=== PATIENT | male | born 1945 | race African-American/Black ===

== ENCOUNTER 2019-06-08 11:42 | Inpatient (IN) | payer MEDICARE ==
[~2019-06-08 11:42] MED LIST: Dexamethasone 20 MG/5 ML VIAL ONE; Glycopyrrolate 0.2 MG/ML 5 ML SYRINGE ONE; Lidocaine 1% PF 5 ML VIAL ONE; Ondansetron PF 4 MG/2 ML Vial ONE; PHENYLEPHRINE-NS 100 MCG/ML 10 ML SYRINGE ONE; PROPOFOL 200 MG/20 ML VIAL ONE; Rocuronium Bromide 10 MG/ML (10ML VIAL) ONE; Succinylcholine Chloride 20 MG/ML 10 ml SYRINGE FS ONE
[2019-06-08] MEDS ORDERED: Bupivacaine 0.25% HCL 30 ML VIAL ONE (11:45)
[2019-06-08] MEDS ORDERED: Lidocaine 1% w/Epinephrine 1:100K 20 ML VIAL ONE (11:45)
[2019-06-08] MEDS ORDERED: Fentanyl 100 MCG/2 ML VIAL ONE ×4 (11:57→14:58)
[2019-06-08] MEDS ORDERED: Promethazine HCl 25 MG/ML VIAL SLOW IVP PRN ×2 (12:40→14:45)
[2019-06-08] MEDS ORDERED: Meperidine HCl/PF 25 MG/ML VIAL SLOW IVP PRN (12:40)
[2019-06-08] MEDS ORDERED: HYDROmorphone 2 MG/ML VIAL SLOW IVP PRN (12:40)
[2019-06-08] MEDS ORDERED: Ondansetron HCl/PF 4 MG/2 ML Vial IVP PRN ×2 (12:40→14:45)
[2019-06-08] MEDS ORDERED: Morphine Sulfate 100 MG in Dextrose 5% in Water 98 ML IV SCH (14:33)
[2019-06-08] MEDS ORDERED: Naloxone HCl 0.4 mg/ml Vial IV PRN (14:33)
[2019-06-08] MEDS ORDERED: Ondansetron PF 4 MG/2 ML Vial IVP PRN ×2 (14:33→16:53)
[2019-06-08] MEDS ORDERED: Promethazine HCl 25 MG/ML VIAL IM PRN ×2 (14:45→16:53)
--- NOTE | 2019-06-08 14:47 | HP ---
CHIEF COMPLAINT: Right lower quadrant pain. HISTORY OF PRESENT ILLNESS: This is a 74-year-old male, who just underwent laparoscopic appendectomy converted to open right colon for hepatic flexure of colon mass. He had 2-day history of right lower quadrant lower abdominal pain. Unsure of previous colonoscopy. No blood in stool. No chronic diarrhea or constipation. No chronic abdominal pain. PAST MEDICAL HISTORY: He denies. PAST SURGICAL HISTORY: Includes right inguinal hernia. MEDICATIONS: Taken daily, eye drops. ALLERGIES: NO KNOWN DRUG ALLERGIES. SOCIAL HISTORY: No smoking, alcohol, or other drugs. REVIEW OF SYSTEMS: Ten-system review of systems is otherwise negative unless described above. PHYSICAL EXAMINATION: HEENT: Sclerae are anicteric. Oropharynx is clear. NECK: No lymphadenopathy. CHEST: Clear. HEART: Regular rate. ABDOMEN: Soft. He is tender in the right abdomen with localized guarding without rebound. No abdominal or inguinal hernias. EXTREMITIES: No ischemia or edema to extremities. LABORATORY DATA: White blood cell count is 18, hemoglobin 12, platelet count is 253. Creatinine is 1.22. Liver test all normal. Lipase normal. Urine; trace ketones, trace blood. ASSESSMENT: Presumed appendicitis with conversion of operation to right colon for inflammatory mass. PLAN: Admit to hospital for perioperative care. Await final pathology. Discussed with his Job ID: [id number]
--- NOTE | 2019-06-08 14:54 | OP ---
DATE OF PROCEDURE: 06/08/2019 PREOPERATIVE DIAGNOSIS: Acute appendicitis. POSTOPERATIVE DIAGNOSIS: Right colon mass. PROCEDURE PERFORMED: Laparoscopic appendectomy converted to open right colectomy. ANESTHESIA: General. ESTIMATED BLOOD LOSS: ___50 ml COMPLICATIONS: None. FINDINGS: The patient's appendix appeared inflamed, but this was secondary to an inflammatory process in the abdomen coming from hepatic flexure of colon, where there appeared to be a necrotic tumor like effect, very difficult to tell whether this represented tumor versus inflammatory change from localized diverticulitis. TECHNIQUE: The patient was taken to the operating room and laid supine on the table. After general anesthetic was obtained, a López was placed. The abdomen was shaved, prepped, and draped in a sterile fashion. A curved incision was made below the umbilicus. Cautery was used to dissect down to and score the fascia. Abdominal cavity was entered bluntly using a Judy clamp. Holding stitch of PDS was placed on each side of the fascia. A Aylin trocar was placed. High-flow peritoneum was obtained. A suprapubic 5-mm port and a left lower quadrant 5-mm port were placed under direct visualization. There was purulent-appearing material in the right lower quadrant and pelvis. The appendix appeared inflamed, but there was no obvious perforation point. Decision was made to take out the appendix. Laparoscopic stapler was fired across the base of the appendix. A vascular reload was fired across the mesoappendix. The appendix was brought out through an EndoCatch bag. The abdomen was irrigated using sterile solution. The small bowel was run from ligament of Treitz proximally without evidence of pathology. The sigmoid colon appeared noninflamed. There was no evidence of diverticulum. Looking at the right upper quadrant, there was significant inflammatory change in the area of the hepatic flexure of colon. There was an area where there was some omentum stuck to a perforated part of the hepatic flexure of colon. Decision was made to open. Midline incision was made. Bookwalter retractor was placed. Right colon was mobilized along the white line of Toldt. There was fairly significant localized inflammatory change at the hepatic flexure of colon. The right ureter was found and excluded from the dissection. The hepatic flexure of colon was carefully dissected away from the duodenum. The transverse mesocolon was taken off the proximal transverse colon. A THANH-75 stapler was fired across the terminal ileum, a reload was fired across the transverse colon. The resultant mesentery was taken low using Judy clamps and silk ties. Again, care was taken to avoid injury to the duodenum. The masslike effect was completely confined to the colon without evidence of locally advanced malignant disease. There was no evidence of diffuse lymphadenopathy. There was no liver tumor. The small bowel was able to be brought up in a czol-zv-zcoo fashion against the transverse colon, and a ybbx-ue-kzbq anastomosis was performed using a THANH-75 stapler. The common enterotomy was closed using running Vicryl suture in 2 layers. The anastomosis did not appear ischemic. All instrument counts, needle counts, lap counts were correct. There was no bleeding in the abdomen. Midline fascia was closed using #1 PDS from the top and the bottom and tied in the middle. The subcutaneous tissues were irrigated copiously using sterile solution. The skin was closed using 3-0 Vicryl, 4-0 Monocryl, and Dermabond. The patient was sent to Recovery in stable condition. All instrument counts, needle counts, and lap counts were correct. Job ID: [id number] [facility]
[2019-06-08 16:57] VITALS: BMI 23.7
[2019-06-08] MEDS: Sodium Chloride 0.9% 1,000 ML IV SCH (17:23)
[2019-06-08] MEDS: Famotidine/PF 20 mg/2ml Vial SLOW IVP SCH (20:13)
[2019-06-08] MEDS: Famotidine 20 MG TAB PO SCH (20:14)
[2019-06-09] MEDS: Sodium Chloride 0.9% 1,000 ML IV SCH ×3 (03:00→23:38)
[2019-06-09 05:49] LABS: Anion Gap 12 mmol/L (10-20); BUN (Urea Nitrogen) 14 mg/dL (8.4-25.7); Calc. Creatinine Clearance 54 mL/min (70-130); Calcium 7.9 mg/dL (7.8-10.44); Carbon Dioxide 24 mmol/L (23-31); Chloride 103 mmol/L (98-107); Estimated GFR-MDRD 61; Glucose 110 mg/dL (83-110); Potassium 4.1 mmol/L (3.5-5.1); Sodium 135 mmol/L (136-145)
[2019-06-09 07:51] LABS: Band 12 % (5-11); Eosinophils 1 % (0-10); Hemoglobin 10.1 g/dL (14.0-18.0); Lymphocytes 15 % (21-51); MDiff Complete? YES; Mean Corpuscular HGB CONC 32.8 g/dL (32.0-36.0); Mean Corpuscular Volume 88.6 fL (78.0-98.0); Mean Platelet Volume 7.2 fL (7.4-10.4); Monocytes 2 % (0-10); Neutrophil 70 % (42-75); Platelet Count 258 thou/uL (130-400); RBC Distribution Width 13.3 % (11.5-14.5); Red Blood Cell (RBC) Count 3.48 mill/uL (4.70-6.10); White Blood Cell (WBC) Count 15.4 thou/uL (4.8-10.8)
[2019-06-09] MEDS: Famotidine 20 MG TAB PO SCH ×2 (08:04→20:28)
[2019-06-09] MEDS ORDERED: Prevnar 13-Val Conj/PF 0.5 ML SYRINGE IM ONE (09:00)
[2019-06-09] MEDS: Tamsulosin HCl 0.4 MG CAP PO SCH (09:18)
--- NOTE | 2019-06-09 09:38 | PRG ---
DATE OF SERVICE: 06/09/2019 SUBJECTIVE: Postop day #1 right colectomy for inflammatory mass. Mr. Cagle has no complaints. He is tolerating clear liquids without difficulty. He is ambulated. His López was removed this morning. He is due to void. Tolerating his clear liquids. No nausea. His catheter is out. He is due to void. OBJECTIVE: He is afebrile. Vital signs are stable. His abdomen is soft. His wound is healing well. There is no infection. He is slightly distended. LABORATORY DATA: His sodium is 135, potassium 4.1, creatinine 1.38. White blood cell count is 15, hemoglobin 10, platelet count is 258. ASSESSMENT: Postop day #1 right colectomy. PLAN: Stay on clears today. 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 Replace the López catheter if he is not able to void by 11 a.m. Start Flomax. Follow his creatinine. Keep IV fluids running at 100 mL secondary to creatinine being up a little bit since surgery. Job ID: [id number]
[2019-06-09] MEDS: Famotidine/PF 20 mg/2ml Vial SLOW IVP SCH ×2 (15:30→22:10)
[2019-06-09] MEDS ORDERED: Morphine Sulfate 100 MG in Dextrose 5% in Water 98 ML IV SCH (16:45)
[2019-06-09] MEDS: hydrALAZINE 20 MG/ML VIAL SLOW IVP PRN (23:39)
[2019-06-10] MEDS ORDERED: Fentanyl 100 MCG/2 ML VIAL SLOW IVP PRN (08:14)
--- NOTE | 2019-06-10 08:33 | PRG ---
DATE OF SERVICE: 06/09/2019 SUBJECTIVE: Mr. Cagle is doing well. No nausea, vomiting, or bloating. He has not passed much gas yet. He has been ambulatory. López had to be replaced secondary to urinary retention. He is afebrile and his vital signs are stable. His abdomen is nondistended. He does have some bowel sounds. His midline incision is healing well without evidence of infection. ASSESSMENT: Postop right colectomy for hepatic flexure mass. PLAN: Advance to full liquids today. Discontinue CRANBERRY SORTER, do tramadol for pain as tolerates at home tomorrow. He will likely go home with this catheter in given his urinary retention, have already started Flomax. Job ID: [id number]
[2019-06-10] MEDS: Famotidine 20 MG TAB PO SCH ×2 (08:58→21:05)
[2019-06-10] MEDS: Tamsulosin HCl 0.4 MG CAP PO SCH (08:58)
[2019-06-10] MEDS: Famotidine/PF 20 mg/2ml Vial SLOW IVP SCH ×2 (08:59→21:07)
[2019-06-10] MEDS: traMADol HCl 50 MG TAB PO PRN (17:52)
[2019-06-11] MEDS: traMADol HCl 50 MG TAB PO PRN ×2 (00:23→21:29)
[2019-06-11] MEDS: Fentanyl 100 MCG/2 ML VIAL SLOW IVP PRN ×4 (04:20→23:14)
[2019-06-11] MEDS: hydrALAZINE 20 MG/ML VIAL SLOW IVP PRN (05:53)
[2019-06-11 07:07] LABS: #Basophils 0.1 thou/uL (0.0-0.2); #Eosinphils 0.1 thou/uL (0.0-0.7); #Lymphocytes 1.5 thou/uL (1.20-3.40); #Monocytes 1.3 thou/uL (0.11-0.59); #Neutrophils 6.6 thou/uL (1.40-6.50); %Basophils 0.6 % (0.0-1.0); %Eosinophils 0.6 % (0.0-10.0); %Lymphocytes 15.7 % (21.0-51.0); %Monocytes 13.3 % (0.0-10.0); %Neutrophils 69.9 % (42.0-75.0); Hemoglobin 10.9 g/dL (14.0-18.0); Mean Corpuscular HGB CONC 31.9 g/dL (32.0-36.0); Mean Corpuscular Hemoglobin 27.9 pg (27.0-31.0); Mean Corpuscular Volume 87.5 fL (78.0-98.0); Mean Platelet Volume 7.2 fL (7.4-10.4); Platelet Count 249 thou/uL (130-400); Red Blood Cell (RBC) Count 3.91 mill/uL (4.70-6.10); White Blood Cell (WBC) Count 9.4 thou/uL (4.8-10.8)
[2019-06-11 07:15] LABS: Anion Gap 12 mmol/L (10-20); BUN (Urea Nitrogen) 9 mg/dL (8.4-25.7); Calc. Creatinine Clearance 65 mL/min (70-130); Calcium 8.2 mg/dL (7.8-10.44); Carbon Dioxide 25 mmol/L (23-31); Chloride 101 mmol/L (98-107); Estimated GFR-MDRD 76; Glucose 96 mg/dL (83-110); Potassium 3.8 mmol/L (3.5-5.1); Sodium 134 mmol/L (136-145)
[2019-06-11] MEDS ORDERED: Timolol 0.5% Ophth Soln 5 ml Bottle EA EYE SCH (09:00)
--- NOTE | 2019-06-11 09:08 | PRG ---
DATE OF SERVICE: 06/11/2019 SUBJECTIVE: Mr. Cagle is complaining of more bloating. No vomiting. No nausea, but he is hiccuping a lot. No passing gas. No bowel movement yet. OBJECTIVE: VITAL SIGNS: He is afebrile. His blood pressure is 197/84, pulse is 99, respirations 24, O2 saturation is 96% on room air. He is afebrile. ABDOMEN: More distended. He has minimal bowel sounds. His midline wound is healing well without evidence of infection. LABORATORY DATA: White blood cell count is 9, hemoglobin is 10.9, platelet count is 249, normal differential. Creatinine 1.14. ASSESSMENT: 1. Expected postoperative ileus, right colectomy for hepatic flexure mass. 2. Hypertension. Does not take medication at home. PLAN: We will place NG tube and n.p.o. except ice chips and hard candy. I expect this expected postop ileus to slowly resolve. Job ID: [id number]
[2019-06-11] MEDS: Famotidine/PF 20 mg/2ml Vial SLOW IVP SCH ×2 (09:53→20:14)
[2019-06-11] MEDS: D5 1/2 NS w/20 mEq KCL 1,000 ML IV SCH ×2 (09:55→18:35)
[2019-06-11] MEDS: Tamsulosin HCl 0.4 MG CAP PO SCH (09:58)
[2019-06-11] MEDS: Famotidine 20 MG TAB PO SCH ×2 (09:58→20:12)
[2019-06-11] MEDS ORDERED: Labetalol HCl 100 MG/20 ML VIAL SLOW IVP PRN (10:51)
[2019-06-11] MEDS ORDERED: cloNIDine 0.1mg/24 Hour PATCH TD SCH (12:00)
[2019-06-11] MEDS: Labetalol HCl 100 MG/20 ML VIAL SLOW IVP SCH ×3 (12:02→23:15)
[2019-06-11] MEDS: Timolol 0.25% Ophth Soln 5 ml Bottle EA EYE SCH ×2 (12:02→20:14)
--- NOTE | 2019-06-11 15:15 | PDOC.HOSPP ---
- Subjective Encounter Date: 06/11/19 Encounter Time: 10:45 Subjective: Patient seen and examined for elevated HTN. Has h/o HTN - dced meds by himself. Does not take meds at home. No CP/SOB. - Objective Vital Signs & Weight: Vital Signs (12 hours) Temp Pulse Resp BP Pulse Ox 06/11/19 10:50 98.5 F 92 22 H 171/77 H 97 06/11/19 07:14 98.7 F 99 24 H 197/84 H 96 06/11/19 05:53 80 06/11/19 04:24 98.7 F 80 16 188/105 H 97 Weight Weight 175 lb 0.752 oz I&O: 06/10/19 06/11/19 06/12/19 06:59 06:59 06:59 Intake Total 1350 400 Output Total 475 1600 Balance 875 -1200 Result Diagrams: 06/11/19 06:47 06/11/19 06:47 Hospitalist ROS - Review of Systems Respiratory: denies: cough, dry, shortness of breath, hemoptysis, SOB with excertion, pleuritic pain, sputum, wheezing, other Cardiovascular: denies: chest pain, palpitations, orthopnea, paroxysmal noc. dyspnea, edema, light headedness, other - Medication Medications: Active Medications Generic Name Dose Route Start Last Admin Trade Name Freq PRN Reason Stop Dose Admin Clonidine 0.1 mg 06/11/19 12:00 06/11/19 12:03 [id number] Patch TD 0.1 mg Q7D ZEB Administration Famotidine 20 mg 06/08/19 21:00 06/11/19 09:58 Pepcid PO Not Given Q12HR ZEB Famotidine 20 mg 06/08/19 21:00 06/11/19 09:53 Pepcid SLOW IVP 20 mg Q12HR ZEB Administration Fentanyl 50 mcg 06/10/19 08:14 06/11/19 09:53 Sublimaze SLOW IVP 50 mcg Q2H PRN Administration Moderate to Severe Pain (6-10) Hydralazine HCl 10 mg 06/08/19 16:53 06/11/19 05:53 Apresoline SLOW IVP 10 mg Q4H PRN Administration SBP > 170 or DBP > 100 Potassium Chloride/Dextrose/Sod Cl 1,000 mls @ 100 mls/hr 06/11/19 09:00 09:55 D5 1/2 Ns W/20 Meq Kcl IV 1,000 mls .Q10H ZEB Administration Labetalol HCl 10 mg 06/11/19 12:00 06/11/19 12:02 Normodyne SLOW IVP 2 ml Q6HR ZEB Administration Tamsulosin HCl 0.4 mg 06/09/19 09:00 06/11/19 09:58 Flomax PO Not Given DAILY ZEB Timolol Maleate 1 drop 06/11/19 09:00 06/11/19 12:02 Timoptic 0.25% Ophth Soln EA EYE 1 drp BID ZEB Administration Tramadol HCl 100 mg 06/10/19 08:14 06/11/19 00:23 Ultram PO 100 mg Q6H PRN Administration Moderate to Severe Pain (6-10) - Exam General Appearance: NAD General - other findings: NG tube Neck: supple, no JVD Heart: RRR, no gallops Respiratory: no wheezes, no ronchi Gastrointestinal: soft, no guarding, no rigidity Extremities: no cyanosis, no clubbing, no edema Hosp A/P - Plan out of bed/ambulate, DVT proph w/SCDs HTN - uncontrolled CKD 2 Chronic Anemia - suspected due to nutritional def PLAN: Will start IV Labetalol 10 mg Q6h scheduled Add Clonidine patch Cont IV Hydralazine PRN AM labs Full code DPOA - spouse
[2019-06-11] MEDS ORDERED: Enalaprilat Dihydrate 1.25 MG/ML VIAL SLOW IVP PRN (15:46)
[2019-06-12] MEDS: Fentanyl 100 MCG/2 ML VIAL SLOW IVP PRN ×2 (02:20→08:28)
[2019-06-12] MEDS: D5 1/2 NS w/20 mEq KCL 1,000 ML IV SCH ×2 (04:11→20:31)
[2019-06-12] MEDS: traMADol HCl 50 MG TAB PO PRN ×3 (04:11→23:57)
[2019-06-12] MEDS: Labetalol HCl 100 MG/20 ML VIAL SLOW IVP SCH ×4 (05:41→23:51)
[2019-06-12 05:42] LABS: Anion Gap 12 mmol/L (10-20); BUN (Urea Nitrogen) 7 mg/dL (8.4-25.7); Calc. Creatinine Clearance 69 mL/min (70-130); Calcium 8.2 mg/dL (7.8-10.44); Carbon Dioxide 23 mmol/L (23-31); Chloride 102 mmol/L (98-107); Estimated GFR-MDRD 82; Glucose 124 mg/dL (83-110); Sodium 133 mmol/L (136-145)
[2019-06-12 05:49] LABS: Phosphorus 1.7 mg/dL (2.3-4.7)
[2019-06-12] MEDS ORDERED: Sodium Phosphate 15 MMOL in Sodium Chloride 0.9% 250 ML 250 ML IVPB SCH (06:45)
[2019-06-12] MEDS: Enalaprilat Dihydrate 1.25 MG/ML VIAL SLOW IVP SCH (08:32)
[2019-06-12] MEDS: Tamsulosin HCl 0.4 MG CAP PO SCH (08:33)
[2019-06-12] MEDS: Famotidine/PF 20 mg/2ml Vial SLOW IVP SCH ×2 (08:33→20:31)
--- NOTE | 2019-06-12 10:39 | PRG ---
DATE OF SERVICE: 06/12/2019 SUBJECTIVE: Mr. Cagle has no complaints. His nausea and bloating have improved with an NG tube. The NG tube has put out 500 overnight. It looks bilious. OBJECTIVE: VITAL SIGNS: He is afebrile. Vital signs are stable. His blood pressure is improved. ABDOMEN: Less distended. He has no bowel sounds. His midline wound is healing well without evidence of infection. LABORATORY DATA: White blood cell count is 9, hemoglobin 10, and platelet count is 249. He has a normal differential. Sodium 133, potassium 4.0, and creatinine is 1.07. ASSESSMENT: 1. Postop right colectomy for inflammatory perforated mass. 2. Postop expected ileus. PLAN: Continue NG tube until he has good bowel sounds and passes gas. We will allow ice chips and hard candy. Job ID: [id number]
[2019-06-12] MEDS: Famotidine 20 MG TAB PO SCH ×2 (10:40→20:30)
[2019-06-12] MEDS: Timolol 0.25% Ophth Soln 5 ml Bottle EA EYE SCH ×2 (10:40→20:31)
--- NOTE | 2019-06-12 11:52 | RAD ---
2 VIEW ABDOMEN: Supine and upright views obtained. HISTORY: Postop ileus. FINDINGS: NG tube is in place and tip overlies the region of the gastric antrum. There is stool and gas throughout the colon with mildly distended colon. Small bowel gas pattern is u nremarkable with no evidence of significant small bowel distention or dilatation. IMPRESSION: Mildly distended colon with stool in the left colon. Small bowel gas pattern is unremarkable. POS: [facility]
--- NOTE | 2019-06-12 17:47 | PDOC.HOSPP ---
- Subjective Encounter Date: 06/12/19 Encounter Time: 11:00 Subjective: Patient seen and examined for medical mngt. No CP/SOB/palpitations/syncope. No new complaints. No overnight events - Objective Vital Signs & Weight: Vital Signs (12 hours) Temp Pulse Resp BP BP Pulse Ox 06/12/19 16:00 99.1 F 95 20 158/88 H 96 06/12/19 12:42 95 06/12/19 12:16 98.8 F 95 14 149/94 H 100 06/12/19 08:32 164/95 H 06/12/19 08:03 98.5 F 97 20 168/95 H 98 Weight Admit Weight 175 lb 0.752 oz Weight 175 lb 0.752 oz I&O: 06/11/19 06/12/19 06/13/19 06:59 06:59 06:59 Intake Total 400 1000 Output Total 1600 4350 Balance -1200 -5660 Result Diagrams: 06/11/19 06:47 06/12/19 04:44 Hospitalist ROS - Review of Systems Respiratory: denies: cough, dry, shortness of breath, hemoptysis, SOB with excertion, pleuritic pain, sputum, wheezing, other Cardiovascular: denies: chest pain, palpitations, orthopnea, paroxysmal noc. dyspnea, edema, light headedness, other - Medication Medications: Active Medications Generic Name Dose Route Start Last Admin Trade Name Freq PRN Reason Stop Dose Admin Clonidine 0.1 mg 06/11/19 12:00 06/11/19 12:03 Esvtatiq-Tkv-3 Patch TD 0.1 mg Q7D ZEB Administration Enalaprilat 1.25 mg 06/12/19 09:00 06/12/19 08:32 Vasotec SLOW IVP 1.25 mg DAILY ZEB Administration Famotidine 20 mg 06/08/19 21:00 06/12/19 10:40 Pepcid PO Not Given Q12HR ZEB Famotidine 20 mg 06/08/19 21:00 06/12/19 08:33 Pepcid SLOW IVP 20 mg Q12HR ZEB Administration Fentanyl 50 mcg 06/10/19 08:14 06/12/19 08:28 Sublimaze SLOW IVP 50 mcg Q2H PRN Administration Moderate to Severe Pain (6-10) Hydralazine HCl 10 mg 06/08/19 16:53 06/11/19 05:53 Apresoline SLOW IVP 10 mg Q4H PRN Administration SBP > 170 or DBP > 100 Potassium Chloride/Dextrose/Sod Cl 1,000 mls @ 100 mls/hr 06/11/19 09:00 04:11 D5 1/2 Ns W/20 Meq Kcl IV 1,000 mls .Q10H ZEB Administration Labetalol HCl 10 mg 06/11/19 12:00 06/12/19 12:42 Normodyne SLOW IVP 2 ml Q6HR ZEB Administration Tamsulosin HCl 0.4 mg 06/09/19 09:00 06/12/19 08:33 Flomax PO 0.4 mg DAILY ZEB Administration Timolol Maleate 1 drop 06/11/19 09:00 06/12/19 10:40 Timoptic 0.25% Ophth Soln EA EYE 1 drp BID ZEB Administration Tramadol HCl 100 mg 06/10/19 08:14 06/12/19 04:11 Ultram PO 100 mg Q6H PRN Administration Moderate to Severe Pain (6-10) - Exam Heart: RRR, no gallops Respiratory: no wheezes, no ronchi Gastrointestinal: non-tender, non-distended, normal bowel sounds Extremities: no cyanosis Neurological: no new deficit Hosp A/P - Plan DVT proph w/SCDs HTN - better controlled Hypophosphatemia CKD 2 Chronic Anemia - suspected due to nutritional def PLAN: Cont IV Labetalol 10 mg Q6h scheduled Cont Clonidine patch Add IV Vasotec scheduled QAM Replace Phosphorus Cont IV Hydralazine PRN AM labs
[2019-06-13] MEDS: Labetalol HCl 100 MG/20 ML VIAL SLOW IVP SCH ×3 (05:14→17:41)
[2019-06-13] MEDS: D5 1/2 NS w/20 mEq KCL 1,000 ML IV SCH ×3 (05:15→20:20)
[2019-06-13 05:56] LABS: #Eosinphils 0.2 thou/uL (0.0-0.7); #Lymphocytes 1.7 thou/uL (1.20-3.40); #Monocytes 1.5 thou/uL (0.11-0.59); #Neutrophils 10.9 thou/uL (1.40-6.50); %Eosinophils 1.2 % (0.0-10.0); %Lymphocytes 11.9 % (21.0-51.0); %Monocytes 10.5 % (0.0-10.0); %Neutrophils 76.3 % (42.0-75.0); Hemoglobin 9.2 g/dL (14.0-18.0); Mean Corpuscular HGB CONC 32.9 g/dL (32.0-36.0); Mean Corpuscular Hemoglobin 28.6 pg (27.0-31.0); Mean Corpuscular Volume 86.8 fL (78.0-98.0); Platelet Count 254 thou/uL (130-400); RBC Distribution Width 13.1 % (11.5-14.5); Red Blood Cell (RBC) Count 3.22 mill/uL (4.70-6.10); White Blood Cell (WBC) Count 14.2 thou/uL (4.8-10.8)
[2019-06-13 06:15] LABS: Albumin 2.7 g/dL (3.4-4.8); Anion Gap 12 mmol/L (10-20); BUN (Urea Nitrogen) 11 mg/dL (8.4-25.7); BUN/Creatinine Ratio 9.65; Calc. Creatinine Clearance 65 mL/min (70-130); Calcium 8.3 mg/dL (7.8-10.44); Carbon Dioxide 26 mmol/L (23-31); Chloride 101 mmol/L (98-107); Estimated GFR-MDRD 76; Glucose 110 mg/dL (83-110); Magnesium 1.9 mg/dL (1.6-2.6); Phosphorus 2.9 mg/dL (2.3-4.7); Potassium 3.8 mmol/L (3.5-5.1); Sodium 135 mmol/L (136-145)
[2019-06-13] MEDS: traMADol HCl 50 MG TAB PO PRN ×3 (06:32→20:18)
[2019-06-13] MEDS: Tamsulosin HCl 0.4 MG CAP PO SCH (09:14)
[2019-06-13] MEDS: Famotidine 20 MG TAB PO SCH ×2 (09:15→20:14)
[2019-06-13] MEDS: Enalaprilat Dihydrate 1.25 MG/ML VIAL SLOW IVP SCH (09:15)
[2019-06-13] MEDS: Famotidine/PF 20 mg/2ml Vial SLOW IVP SCH ×2 (09:15→20:14)
[2019-06-13] MEDS: Timolol 0.25% Ophth Soln 5 ml Bottle EA EYE SCH (09:16)
[2019-06-13] MEDS: Timolol 0.5% Ophth Soln 5 ml Bottle EA EYE SCH (20:15)
[2019-06-13] MEDS ORDERED: cloNIDine 0.1 MG TAB PO PRN (23:27)
--- NOTE | 2019-06-13 23:29 | PDOC.HOSPP ---
- Subjective Encounter Date: 06/13/19 Encounter Time: 11:45 Subjective: Patient seen and examined for med mngt. No N/V/CP. No new complaints. No overnight events - Objective Vital Signs & Weight: Vital Signs (12 hours) Temp Pulse Resp BP BP Pulse Ox 06/13/19 20:15 84 06/13/19 20:05 99 06/13/19 19:14 98.3 F 84 16 166/93 H 99 06/13/19 16:10 98.7 F 86 12 135/80 98 06/13/19 12:16 159/95 H 06/13/19 11:56 98.5 F 82 16 159/95 H 98 Weight Admit Weight 175 lb 0.752 oz Weight 175 lb 0.752 oz I&O: 06/12/19 06/13/19 06/14/19 06:59 06:59 06:59 Intake Total 1000 2150 1800 Output Total 4350 1450 1200 Balance -3350 700 600 Result Diagrams: 06/13/19 05:19 06/13/19 05:19 Hospitalist ROS - Review of Systems Respiratory: denies: cough, dry, shortness of breath, hemoptysis, SOB with excertion, pleuritic pain, sputum, wheezing, other Cardiovascular: denies: chest pain, palpitations, orthopnea, paroxysmal noc. dyspnea, edema, light headedness, other - Medication Medications: Active Medications Generic Name Dose Route Start Last Admin Trade Name Freq PRN Reason Stop Dose Admin Clonidine 0.1 mg 06/11/19 12:00 06/11/19 12:03 Aakpjtyj-Mjf-4 Patch TD 0.1 mg Q7D ZEB Administration Famotidine 20 mg 06/08/19 21:00 06/13/19 20:14 Pepcid PO 20 mg Q12HR ZEB Administration Famotidine 20 mg 06/08/19 21:00 06/13/19 20:14 Pepcid SLOW IVP Not Given Q12HR ZEB Fentanyl 50 mcg 06/10/19 08:14 06/12/19 08:28 Sublimaze SLOW IVP 50 mcg Q2H PRN Administration Moderate to Severe Pain (6-10) Hydralazine HCl 10 mg 06/08/19 16:53 06/11/19 05:53 Apresoline SLOW IVP 10 mg Q4H PRN Administration SBP > 170 or DBP > 100 Labetalol HCl 10 mg 06/11/19 12:00 06/13/19 17:41 Normodyne SLOW IVP 06/14/19 02:00 Not Given Q6HR ZEB Tamsulosin HCl 0.4 mg 06/09/19 09:00 06/13/19 09:14 Flomax PO 0.4 mg DAILY ZEB Administration Timolol Maleate 1 drop 06/13/19 21:00 06/13/19 20:15 Timoptic 0.5% Ophth Soln EA EYE Not Given BID ZEB Tramadol HCl 50 mg 06/10/19 08:14 06/13/19 20:18 Ultram PO 50 mg Q6H PRN Administration Mild-Moderate Pain (1-5) Tramadol HCl 100 mg 06/10/19 08:14 06/13/19 06:32 Ultram PO 100 mg Q6H PRN Administration Moderate to Severe Pain (6-10) - Exam General Appearance: NAD Neck: supple, no JVD Heart: no gallops, no rubs Respiratory: no wheezes, no ronchi Gastrointestinal: non-tender, non-distended, normal bowel sounds Extremities: no cyanosis Hosp A/P - Plan DVT proph w/SCDs HTN Hypophosphatemia - replaced CKD 2 Chronic Anemia - suspected due to nutritional def PLAN: Add PO Procardia XL and Coreg from AM DC IV Labetalol after PM dose Cont Clonidine patch Cont IV Hydralazine PRN
[2019-06-14] MEDS: Labetalol HCl 100 MG/20 ML VIAL SLOW IVP SCH (00:10)
[2019-06-14] MEDS: D5 1/2 NS w/20 mEq KCL 1,000 ML IV SCH ×2 (03:17→04:39)
[2019-06-14] MEDS: traMADol HCl 50 MG TAB PO PRN ×3 (06:19→18:28)
[2019-06-14] MEDS ORDERED: D5 1/2 NS w/20 mEq KCL 1,000 ML IV SCH (08:09)
[2019-06-14] MEDS ORDERED: NIFEdipine XL 30 MG TAB PO SCH (09:00)
[2019-06-14] MEDS: Carvedilol 6.25 MG TAB PO SCH ×2 (09:56→16:06)
[2019-06-14] MEDS: Famotidine 20 MG TAB PO SCH ×2 (09:56→20:22)
[2019-06-14] MEDS: Tamsulosin HCl 0.4 MG CAP PO SCH (09:56)
[2019-06-14] MEDS: Timolol 0.5% Ophth Soln 5 ml Bottle EA EYE SCH ×2 (09:57→20:23)
[2019-06-14] MEDS: Famotidine/PF 20 mg/2ml Vial SLOW IVP SCH ×2 (09:57→20:23)
--- NOTE | 2019-06-14 11:41 | PDOC.GSPN ---
Surgery Progress Note: Subj - Subjective Narrative: Doing well. Tolerating liquids well now. Had a BM Surgery Progress Note: Obj - Vital signs Vital signs: Vital Signs - Most Recent Temp Pulse Resp BP Pulse Ox 98.1 F 83 16 150/89 H 99 06/14/19 07:05 06/14/19 09:57 06/14/19 07:05 06/14/19 09:57 06/14/19 09:56 - Physical Exam General: no distress Cardiovascular: regular rate and rhythm Respiratory: clear to auscultation Abdomen: soft, appropriately tender Wound: erythma/edema (at inferior wound. Will explore locally) Surgery Progress Note: Results - Labs Result Diagrams: 06/13/19 05:19 06/13/19 05:19 Surgery Progress Note: A/P - Problem (1) Mass of hepatic flexure of colon Current Visit: Yes Code(s): K63.89 - OTHER SPECIFIED DISEASES OF INTESTINE Status: Acute - Plan Plan: Perforated: Path shows T3, N0 (Although clinically a T4 due to perforation) -Full liquids. -suspect home tomorrow -explore inferior wound
--- NOTE | 2019-06-14 13:56 | PDOC.HOSPP ---
- Subjective Encounter Date: 06/14/19 Encounter Time: 10:45 Subjective: Patient seen and examined for med mngt. Toleraing PO meds. No N or CP. No new complaints. No overnight events - Objective Vital Signs & Weight: Vital Signs (12 hours) Temp Pulse Resp BP BP Pulse Ox 06/14/19 11:05 98.1 F 97 18 148/82 H 99 06/14/19 09:57 83 150/89 H 06/14/19 09:56 83 151/84 H 99 06/14/19 07:05 98.1 F 83 16 150/89 H 99 06/14/19 03:41 98.4 F 70 16 135/80 99 Weight Admit Weight 175 lb 0.752 oz Weight 175 lb 0.752 oz I&O: 06/13/19 06/14/19 06/15/19 06:59 06:59 06:59 Intake Total 2150 3225 Output Total 1450 2050 850 Balance 700 1175 -850 Result Diagrams: 06/13/19 05:19 06/13/19 05:19 Hospitalist ROS - Review of Systems Respiratory: denies: cough, dry, shortness of breath, hemoptysis, SOB with excertion, pleuritic pain, sputum, wheezing, other Cardiovascular: denies: chest pain, palpitations, orthopnea, paroxysmal noc. dyspnea, edema, light headedness, other - Medication Medications: Active Medications Generic Name Dose Route Start Last Admin Trade Name Freq PRN Reason Stop Dose Admin Carvedilol 6.25 mg 06/14/19 08:00 06/14/19 09:56 Coreg PO 6.25 mg BID-WM ZEB Administration Clonidine 0.1 mg 06/11/19 12:00 06/11/19 12:03 [place]-Glw-4 Patch TD 0.1 mg Q7D ZEB Administration Famotidine 20 mg 06/08/19 21:00 06/14/19 09:56 Pepcid PO 20 mg Q12HR ZEB Administration Famotidine 20 mg 06/08/19 21:00 06/14/19 09:57 Pepcid SLOW IVP Not Given Q12HR ZEB Fentanyl 50 mcg 06/10/19 08:14 06/12/19 08:28 Sublimaze SLOW IVP 50 mcg Q2H PRN Administration Moderate to Severe Pain (6-10) Hydralazine HCl 10 mg 06/08/19 16:53 06/11/19 05:53 Apresoline SLOW IVP 10 mg Q4H PRN Administration SBP > 170 or DBP > 100 Levofloxacin 500 mg/ Device 100 mls @ 100 mls/hr 06/14/19 12:00 06/14/19 12: 23 IVPB 100 mls 1200 ZEB Administration Nifedipine 30 mg 06/14/19 09:00 06/14/19 09:56 Procardia Xl PO 30 mg DAILY ZEB Administration Tamsulosin HCl 0.4 mg 06/09/19 09:00 06/14/19 09:56 Flomax PO 0.4 mg DAILY ZEB Administration Timolol Maleate 1 drop 06/13/19 21:00 06/14/19 09:57 Timoptic 0.5% Ophth Soln EA EYE 1 drop BID ZEB Administration Tramadol HCl 50 mg 06/10/19 08:14 06/14/19 06:19 Ultram PO 50 mg Q6H PRN Administration Mild-Moderate Pain (1-5) Tramadol HCl 100 mg 06/10/19 08:14 06/14/19 12:22 Ultram PO 100 mg Q6H PRN Administration Moderate to Severe Pain (6-10) - Exam General Appearance: NAD Heart: RRR, no gallops Respiratory: no wheezes, no ronchi Gastrointestinal: soft, no guarding, no rigidity Extremities: no cyanosis Hosp A/P - Plan DVT proph w/SCDs HTN CKD 2 Hypophosphatemia - replaced Chronic Anemia - suspected due to nutritional def Urinary retention PLAN: Cont Procardia XL 30 mg daily Cont Coreg 6.25 mg BID Cont Flomax Cont PO Clonidine PRN Remove Clonidine patch at dc Cont IV Hydralazine PRN
[2019-06-14] MEDS: metroNIDAZOLE 500 MG in Premix Bag 1 BAG IVPB SCH ×2 (14:30→21:50)
[2019-06-14] MEDS: Fentanyl 100 MCG/2 ML VIAL SLOW IVP PRN (14:51)
[2019-06-15] MEDS: metroNIDAZOLE 500 MG in Premix Bag 1 BAG IVPB SCH ×3 (05:14→21:11)
[2019-06-15] MEDS: Tamsulosin HCl 0.4 MG CAP PO SCH (08:02)
[2019-06-15] MEDS: Famotidine 20 MG TAB PO SCH ×2 (08:03→20:47)
[2019-06-15] MEDS: Famotidine/PF 20 mg/2ml Vial SLOW IVP SCH ×2 (08:04→20:51)
[2019-06-15] MEDS: Timolol 0.5% Ophth Soln 5 ml Bottle EA EYE SCH ×2 (08:04→21:12)
[2019-06-15] MEDS ORDERED: Amlodipine 5 MG TAB PO SCH (09:00)
--- NOTE | 2019-06-15 09:05 | PRG ---
DATE OF SERVICE: 06/15/2019 SUBJECTIVE: The patient is status post extended hemicolectomy for T4 colon cancer. He developed a wound infection. He has a wound VAC in place. He says he feels great. He is eating. His bowels are working. OBJECTIVE: VITAL SIGNS: Temperature 98.2, pulse 73, and blood pressure 112/70. GENERAL: He is awake, alert, does not appear to be in any distress. ABDOMEN: Soft, nondistended, and nontender. He has a wound VAC on his wound. LABORATORY DATA: No recent lab. ASSESSMENT: Doing well. PLAN: get Home Health arranged for his wound VAC, should be able to discharge . Job ID: [id number]
--- NOTE | 2019-06-15 10:58 | PDOC.HOSPP ---
- Subjective Encounter Date: 06/15/19 Encounter Time: 09:30 Subjective: Patient seen and examined for medical mgnt. No CP/SOB or fever. No new complaints. No overnight events - Objective Vital Signs & Weight: Vital Signs (12 hours) Temp Pulse Resp BP BP Pulse Ox 06/15/19 08:04 73 06/15/19 08:03 98 06/15/19 08:02 73 112/70 06/15/19 07:13 98.2 F 73 18 112/70 98 06/15/19 04:00 98.2 F 71 18 122/73 96 06/14/19 23:47 98.1 F 83 18 103/64 96 Weight Admit Weight 175 lb 0.752 oz Weight 175 lb 0.752 oz I&O: 06/14/19 06/15/19 06/16/19 06:59 06:59 06:59 Intake Total 3225 2370 Output Total 2050 2250 Balance 1175 120 Result Diagrams: 06/13/19 05:19 06/13/19 05:19 Hospitalist ROS - Review of Systems Respiratory: denies: cough, dry, shortness of breath, hemoptysis, SOB with excertion, pleuritic pain, sputum, wheezing, other Cardiovascular: denies: chest pain, palpitations, orthopnea, paroxysmal noc. dyspnea, edema, light headedness, other - Medication Medications: Active Medications Generic Name Dose Route Start Last Admin Trade Name Freq PRN Reason Stop Dose Admin Amlodipine Besylate 2.5 mg 06/15/19 09:00 06/15/19 08:02 Norvasc PO 2.5 mg DAILY ZEB Administration Famotidine 20 mg 06/08/19 21:00 06/15/19 08:03 Pepcid PO 20 mg Q12HR ZEB Administration Famotidine 20 mg 06/08/19 21:00 06/15/19 08:04 Pepcid SLOW IVP Not Given Q12HR ZEB Fentanyl 50 mcg 06/10/19 08:14 06/14/19 14:51 Sublimaze SLOW IVP 50 mcg Q2H PRN Administration Moderate to Severe Pain (6-10) Hydralazine HCl 10 mg 06/08/19 16:53 06/11/19 05:53 Apresoline SLOW IVP 10 mg Q4H PRN Administration SBP > 170 or DBP > 100 Levofloxacin 500 mg/ Device 100 mls @ 100 mls/hr 06/14/19 12:00 06/14/19 12: 23 IVPB 100 mls 1200 ZEB Administration Metronidazole 500 mg/ Device 100 mls @ 100 mls/hr 06/14/19 14:00 06/15/19 05: 14 IVPB 100 mls Q8HR ZEB Administration Tamsulosin HCl 0.4 mg 06/09/19 09:00 06/15/19 08:02 Flomax PO 0.4 mg DAILY ZEB Administration Timolol Maleate 1 drop 06/13/19 21:00 06/15/19 08:04 Timoptic 0.5% Ophth Soln EA EYE Not Given BID ZEB Tramadol HCl 50 mg 06/10/19 08:14 06/14/19 18:28 Ultram PO 50 mg Q6H PRN Administration Mild-Moderate Pain (1-5) Tramadol HCl 100 mg 06/10/19 08:14 06/14/19 12:22 Ultram PO 100 mg Q6H PRN Administration Moderate to Severe Pain (6-10) - Exam General Appearance: NAD Heart: RRR, no gallops Respiratory: no rales, no ronchi Gastrointestinal: no guarding, no rigidity Extremities: no cyanosis Neurological: no new deficit Hosp A/P - Plan DVT proph w/SCDs HTN CKD 2 Hypophosphatemia - replaced Chronic Anemia - suspected due to nutritional def Urinary retention PLAN: DC Procardia XL 30 mg daily DC Coreg 6.25 mg BID DC Clonidine patch Add Amlodipine López dced Cont Flomax Cont Clonidine PRN Will send meds to pharmacy [place]
[2019-06-15] MEDS: traMADol HCl 50 MG TAB PO PRN (13:34)
[2019-06-15] MEDS ORDERED: Melatonin 3 MG TAB PO PRN (18:51)
[2019-06-15] MEDS: Amlodipine 5 MG TAB PO SCH (20:47)
[2019-06-16] MEDS: Acetaminophen 325 MG TAB PO PRN ×2 (05:15→09:44)
[2019-06-16] MEDS: metroNIDAZOLE 500 MG in Premix Bag 1 BAG IVPB SCH (05:16)
[2019-06-16] MEDS: Famotidine/PF 20 mg/2ml Vial SLOW IVP SCH (09:40)
[2019-06-16] MEDS: Timolol 0.5% Ophth Soln 5 ml Bottle EA EYE SCH (09:41)
[2019-06-16] MEDS: Famotidine 20 MG TAB PO SCH (09:44)
[2019-06-16] MEDS: Tamsulosin HCl 0.4 MG CAP PO SCH (09:45)
[2019-06-16] MEDS: Amlodipine 5 MG TAB PO SCH (09:45)
--- NOTE | 2019-06-16 10:07 | PRG ---
DATE OF SERVICE: 06/16/2019 Mr. Cagle is to be just discharged today after having a colonic resection. He had an infected wound and has been treated with wound VAC. The wound VAC was being changed. At the time of my visit, the wound is clean and granulating. He has plans for followup care already in place. Job ID: [id number]
[2019-06-16 10:57] VITALS: BP 164/95; TEMP 98.1
--- NOTE | 2019-06-16 13:53 | PDOC.HOSPP ---
- Subjective Encounter Date: 06/16/19 Encounter Time: 10:45 Subjective: Patient seen and examined for medical mngt. No N/V. No new complaints. No overnight events - Objective Vital Signs & Weight: Vital Signs (12 hours) Temp Pulse Resp BP Pulse Ox 06/16/19 10:57 98.1 F 78 16 164/95 H 99 06/16/19 09:45 53 L 06/16/19 08:10 98.2 F 53 L 16 141/91 H 98 06/16/19 03:52 97.7 F 79 16 151/91 H 95 Weight Admit Weight 175 lb 0.752 oz Weight 175 lb 0.752 oz I&O: 06/15/19 06/16/19 06/17/19 06:59 06:59 06:59 Intake Total 2370 3330 Output Total 2250 650 Balance 120 2680 Result Diagrams: 06/13/19 05:19 06/13/19 05:19 Hospitalist ROS - Review of Systems Respiratory: denies: cough, dry, shortness of breath, hemoptysis, SOB with excertion, pleuritic pain, sputum, wheezing, other Cardiovascular: denies: chest pain, palpitations, orthopnea, paroxysmal noc. dyspnea, edema, light headedness, other - Medication Medications: Active Medications Generic Name Dose Route Start Last Admin Trade Name Freq PRN Reason Stop Dose Admin Acetaminophen 650 mg 06/13/19 20:37 06/16/19 09:44 Tylenol PO 06/16/19 20:38 650 mg ONE PRN Administration Fever/Mild Pain Amlodipine Besylate 2.5 mg 06/15/19 21:00 06/16/19 09:45 Norvasc PO 2.5 mg BID ZEB Administration Famotidine 20 mg 06/08/19 21:00 06/16/19 09:44 Pepcid PO 20 mg Q12HR ZEB Administration Famotidine 20 mg 06/08/19 21:00 06/16/19 09:40 Pepcid SLOW IVP Not Given Q12HR ZEB Fentanyl 50 mcg 06/10/19 08:14 06/14/19 14:51 Sublimaze SLOW IVP 50 mcg Q2H PRN Administration Moderate to Severe Pain (6-10) Hydralazine HCl 10 mg 06/08/19 16:53 06/11/19 05:53 Apresoline SLOW IVP 10 mg Q4H PRN Administration SBP > 170 or DBP > 100 Levofloxacin 500 mg/ Device 100 mls @ 100 mls/hr 06/14/19 12:00 06/16/19 13: 30 IVPB Not Given 1200 ZEB Metronidazole 500 mg/ Device 100 mls @ 100 mls/hr 06/14/19 14:00 06/16/19 05: 16 IVPB 100 mls Q8HR ZEB Administration Melatonin 3 mg 06/15/19 18:51 06/15/19 20:47 Melatonin PO 3 mg HS PRN Administration Insomnia Tamsulosin HCl 0.4 mg 06/09/19 09:00 06/16/19 09:45 Flomax PO 0.4 mg DAILY ZEB Administration Timolol Maleate 1 drop 06/13/19 21:00 06/16/19 09:41 Timoptic 0.5% Ophth Soln EA EYE Not Given BID ZEB Tramadol HCl 50 mg 06/10/19 08:14 06/15/19 13:34 Ultram PO 50 mg Q6H PRN Administration Mild-Moderate Pain (1-5) Tramadol HCl 100 mg 06/10/19 08:14 06/14/19 12:22 Ultram PO 100 mg Q6H PRN Administration Moderate to Severe Pain (6-10) - Exam Neck: negative: supple, symmetric, no JVD, no thyromegaly, no lymphadenopathy, no carotid bruit, JVD Heart: negative: RRR, no murmur, no gallops, no rubs, normal peripheral pulses, irregular, diminshed peripheral pulses, murmur present, II/IV, III/IV Respiratory: negative: CTAB, no wheezes, no rales, no ronchi, normal chest expansion, no tachypnea, normal percussion, rales, rhonchi, tachypneic, wheezes Hosp A/P - Plan DVT proph w/SCDs HTN CKD 2 Hypophosphatemia - replaced Chronic Anemia - suspected due to nutritional def Urinary retention PLAN: Cont Amlodipine 2.5 mg BID Cont Flomax Cont Clonidine PRN Advised patient to reduce Amlodipine to 2.5 mg daily if SBP <110 at home
== END 2019-06-16 14:30 | disposition home health service (06) | DRG 329 ==
LOC: SDC 11:42 → SURG A 14:19
PROVIDERS: ADMIT Surgery; ATTEND Surgery
PROC: 0DTF0ZZ Resection of Right Large Intestine, Open Approach (ICD-10-PCS; principal; 2019-06-08)
PROC: 0DTJ4ZZ Resection of Appendix, Percutaneous Endoscopic Approach (ICD-10-PCS; 2019-06-08)
PROC: 0T9B70Z Drainage of Bladder with Drainage Device, Via Natural or Artificial Opening (ICD-10-PCS; 2019-06-09)
PROC: 3E0234Z Introduction of Serum, Toxoid and Vaccine into Muscle, Percutaneous Approach (ICD-10-PCS; 2019-06-09)
DX: C18.3 Malignant neoplasm of hepatic flexure (principal); K63.1 Perforation of intestine (nontraumatic); K35.80 Unspecified acute appendicitis; K56.7 Ileus, unspecified; T81.41XA Infection following a procedure, superficial incisional surgical site, initial encounter; R33.9 Retention of urine, unspecified; I10 Essential (primary) hypertension; N18.2 Chronic kidney disease, stage 2 (mild); I12.9 Hypertensive chronic kidney disease with stage 1 through stage 4 chronic kidney disease, or unspecified chronic kidney disease; E83.39 Other disorders of phosphorus metabolism; D53.9 Nutritional anemia, unspecified; Y83.8 Other surgical procedures as the cause of abnormal reaction of the patient, or of later complication, without mention of misadventure at the time of the procedure; Z23 Encounter for immunization; Z79.899 Other long term (current) drug therapy
CPT/HCPCS: 36415; 74019; 80048; 80069; 83735; 84100; 85025; 88304; 88309; 88361; 90471; 90670; G0009; J0360; J1100; J1956; J2001; J2270; J2405; J2704; J3010; J3480; J7050; J7070; S0020; S0028

== ENCOUNTER 2019-07-04 09:03 | Outpatient (CLI) | payer MEDICARE ==
[2019-07-04] MEDS ORDERED: Iopamidol 370 76% 100 ML VIAL ONE (11:05)
--- NOTE | 2019-07-04 11:29 | CT ---
Exam: Chest CT with contrast Abdomen CT with and without contrast HISTORY: Left adrenal nodule. Further workup. Colon cancer. Staging exam. COMPARISON: 06/08/2019. TECHNIQUE: Postcontrast chest CT is performed. Abdomen CT is performed with and without contrast util ing adrenal mass protocol. FINDINGS: CHEST CT: There is homogeneous, hypoattenuation in the posterior mediastinum, subcarinal in location extending into the mediastinum inferior to the left hilum. This hypodensity has an attenuation coefficient of -7 Hounsfield units compatible with a cystic lesion measuring 2.1 x 6.7 cm. A pericardial cyst versus bronchogenic cyst versus a GI duplication cyst is favored. Heart size is normal. Normal caliber aorta. Trachea and central bronchi are patent. No pleural effusion. No pneumothorax. There are dependent atelectatic changes in both lungs. Right lung: No suspicious mass, consolidation or nodule Left lung: No suspicious mass, consolidation or nodule. Lower neck and axilla: No masses or lymphadenopathy. ABDOMEN CT: Appropriate enhancement of the liver, spleen, pancreas and right adrenal gland. Appropriate enhancement of the kidneys. No obstructive uropathy. Limited evaluation of the alimentary canal by the lack of oral contrast. There is an anastomosis of s mall bowel in the left hemicolon. Surgical resection of the right hemicolon is suspected. No mesenteric mass, lymphadenopathy, free air or free fluid. There is a hypodense nodule associated with left adrenal gland with an attenuation coefficient of 1 H ounsfield unit on the precontrast exam. Adenoma is favored, measuring 1.6 x 2.1 cm. There are no lytic or blastic lesions in the visualized osseous structures. IMPRESSION: 1. No evidence of suspicious masses or nodules in the lung parenchyma. 2. Posterior mediastinal cystic lesion, likely representing a pericardial cyst, bronchogenic cyst or possibly a GI duplication cyst. 2. Benign adenoma in the left adrenal gland. 4. Postsurgical changes compatible with a right hemicolectomy. Transcribed Date/Time: 07/04/2019 12:18 PM
== END 2019-07-04 09:04 | disposition home or self-care (01) ==
LOC: BICCT 09:03
PROVIDERS: ATTEND Internal Medicine Hematology & Oncology
DX: C18.3 Malignant neoplasm of hepatic flexure (principal); E27.8 Other specified disorders of adrenal gland; Q34.1 Congenital cyst of mediastinum; D35.02 Benign neoplasm of left adrenal gland; Z98.890 Other specified postprocedural states
CPT/HCPCS: 71260; 74170; Q9967

== ENCOUNTER 2020-01-03 09:02 | Outpatient (CLI) | payer MEDICARE ==
--- NOTE | 2020-01-03 10:40 | CT ---
CT OF THE CHEST AND ABDOMEN AND PELVIS: DATE: 01/08/2020. COMPARISON: CT of the abdomen and pelvis 06/08/[address] of the chest and abdomen 07/04/2019. HISTORY: Reevaluate colon cancer. TECHNIQUE: Axial CT imaging at 5 mm intervals from the thoracic inlet through the pubic symphysis with intraveno us and oral contrast. Coronal and sagittal reformatted imaging obtained. FINDINGS: No axillary lymphadenopathy is noted. No hilar or mediastinal lymphadenopathy is seen. There is atherosclerotic calcification of the aortic arch and the coronary arteries. There is a lobulated low-density lesion which is seen in the subcarinal region extending anterior to the esophagus and to the left of midline posterior to the left mainstem bronchus, measuring approximately 6.3 cm in transverse dimension, 1.6 cm in AP dimension, and 5.6 cm in craniocaudal dime nsion. This lesion appears unchanged when compared to the prior exam. It demonstrates Hounsfield units of less than 0 suggesting a stable cystic lesion of the posterior mediastinum, such as a bronch ogenic cyst or duplication cyst. No pneumothorax. No pleural, pericardial, or mediastinal fluid. No suspicious pulmonary parenchymal n odule noted on either side. Review of the osseous structures of the chest demonstrates no acute findings. No free intraperitoneal air or fluid is evident. The liver, gallbladder, spleen, pancreas, and left adrenal gland appear unremarkable. Bilateral kidne ys are unremarkable. There is a lesion within the adrenal gland on the left measuring 2 cm in AP dimension, unchanged when compared to the prior exam. Prior imaging documented that this is a left adrenal adenoma. It is stable. The prostate gland is enlarged and herniates into the bladder base as before. The patient appears status post right hemicolectomy. No bowel inflammatory change or evidence of brianne l obstruction is appreciated. The vascular structures of the abdomen/pelvis appear patent. No inguinal, pelvic, retroperitoneal, or mesenteric adenopathy. Osseous structures of the abdomen/pelvis demonstrate no worrisome lytic or blastic bone lesions. IMPRESSION: 1. No suspicious pulmonary parenchymal masses. 2. Stable posterior mediastinal cystic lesion. 3. Postsurgical changes compatible with right hemicolectomy. 4. Left adrenal adenoma. 5. No evidence for metastatic disease. Transcribed Date/Time: 01/03/2020 10:51 AM
== END 2020-01-03 09:03 | disposition home or self-care (01) ==
LOC: BICCT 09:02
PROVIDERS: ATTEND Internal Medicine Hematology & Oncology
DX: C18.3 Malignant neoplasm of hepatic flexure (principal); D35.02 Benign neoplasm of left adrenal gland; J98.59 Other diseases of mediastinum, not elsewhere classified; Z90.49 Acquired absence of other specified parts of digestive tract
CPT/HCPCS: 71260; 74177; 82565

== ENCOUNTER 2020-07-04 09:05 | Outpatient (CLI) | payer MEDICARE ==
[2020-07-04] MEDS ORDERED: Iopamidol-370 76% 500 ML 1 ML ONE (12:27)
== END 2020-07-04 09:06 | disposition home or self-care (01) ==
LOC: BICCT 09:05
PROVIDERS: ATTEND Internal Medicine Hematology & Oncology
DX: C18.3 Malignant neoplasm of hepatic flexure (principal); Z90.49 Acquired absence of other specified parts of digestive tract
CPT/HCPCS: 71260; 74177; 82565; Q9967

== ENCOUNTER 2020-12-18 09:11 | Outpatient (CLI) | payer MEDICARE | END 2020-12-18 09:12 | disposition home or self-care (01) | LOC: CT 09:11 | PROVIDERS: ATTEND Internal Medicine Hematology & Oncology | DX: C18.3 Malignant neoplasm of hepatic flexure (principal) | CPT/HCPCS: 71260; 74177; 82565 ==

== ENCOUNTER 2021-06-05 07:45 | Outpatient (CLI) | payer MEDICARE | END 2021-06-05 07:46 | disposition home or self-care (01) | LOC: CT 07:45 | PROVIDERS: ATTEND Internal Medicine Hematology & Oncology | DX: C18.3 Malignant neoplasm of hepatic flexure (principal) | CPT/HCPCS: 71260; 74177; 82565 ==

== ENCOUNTER 2021-11-19 09:54 | Outpatient (CLI) | payer MEDICARE ==
[2021-11-19] MEDS ORDERED: GASTROGRAFIN 30 ML BOT ONE (15:58)
[2021-11-19] MEDS ORDERED: Iopamidol 370 76% 100 ML VIAL ONE (15:58)
== END 2021-11-19 09:55 | disposition home or self-care (01) ==
LOC: CT 09:54
PROVIDERS: ATTEND Internal Medicine Hematology & Oncology
DX: C18.9 Malignant neoplasm of colon, unspecified (principal); I10 Essential (primary) hypertension; N40.0 Benign prostatic hyperplasia without lower urinary tract symptoms
CPT/HCPCS: 71260; 74177; 82565; Q9963; Q9967

== ENCOUNTER 2022-01-07 07:22 | Emergency (ER) | payer MEDICARE ==
[2022-01-07] MEDS ORDERED: Amlodipine 5 MG TAB ONE (07:49)
[2022-01-07] MEDS ORDERED: Proparacaine 0.5% Opth 15 ML BOT ONE (07:58)
[2022-01-07 08:21] LABS: #Lymphocytes 1.5 thou/uL (1.20-3.40); #Monocytes 0.3 thou/uL (0.11-0.59); #Neutrophils 1.6 thou/uL (1.40-6.50); %Basophils 1.1 % (0.0-1.0); %Eosinophils 1.2 % (0.0-10.0); %Lymphocytes 43.5 % (21.0-51.0); %Monocytes 8.6 % (0.0-10.0); %Neutrophils 45.6 % (42.0-75.0); Hemoglobin 14.5 g/dL (14.0-18.0); Mean Corpuscular HGB CONC 32.3 g/dL (32.0-36.0); Mean Corpuscular Hemoglobin 30.9 pg (27.0-31.0); Mean Corpuscular Volume 95.6 fl (78.0-98.0); Mean Platelet Volume 7.2 fL (7.4-10.4); Platelet Count 202 thou/uL (130-400); RBC Distribution Width 12.9 % (11.5-14.5); Red Blood Cell (RBC) Count 4.69 mill/uL (4.70-6.10); White Blood Cell (WBC) Count 3.4 thou/uL (4.8-10.8)
[2022-01-07 08:38] LABS: ALT (SGPT) 17 U/L (8-55); AST (SGOT) 18 U/L (5-34); Albumin 4.1 g/dL (3.4-4.8); Alkaline Phosphatase 87 U/L (40-110); Anion Gap 10 mmol/L (10-20); BUN (Urea Nitrogen) 17 mg/dL (8.4-25.7); Bilirubin, Total 0.6 mg/dL (0.2-1.2); Calc. Creatinine Clearance 0 mL/min (70-130); Calcium 9.1 mg/dL (7.8-10.44); Carbon Dioxide 31 mmol/L (23-31); Chloride 105 mmol/L (98-107); Estimated GFR 54; Glucose 88 mg/dL (83-110); Potassium 4.8 mmol/L (3.5-5.1); Protein, Total 7.1 g/dL (5.8-8.1); Sodium 141 mmol/L (136-145)
== END 2022-01-07 09:41 | disposition home or self-care (01) ==
LOC: ERS 07:22
DX: H53.8 Other visual disturbances (principal); I10 Essential (primary) hypertension; E78.5 Hyperlipidemia, unspecified; Z79.899 Other long term (current) drug therapy
CPT/HCPCS: 36415; 71045; 80053; 83880; 84484; 85025; 93005

== ENCOUNTER 2022-06-04 11:21 | Outpatient (CLI) | payer MEDICARE ==
[2022-06-04] MEDS ORDERED: GASTROGRAFIN 30 ML BOT ONE (11:44)
[2022-06-04] MEDS ORDERED: Iopamidol 370 76% 100 ML VIAL ONE (11:44)
== END 2022-06-04 11:22 | disposition home or self-care (01) ==
LOC: CT 11:21
PROVIDERS: ATTEND Internal Medicine Hematology & Oncology
DX: C18.3 Malignant neoplasm of hepatic flexure (principal)
CPT/HCPCS: 71260; 74177; 82565; Q9963; Q9967